=== PATIENT | female | born 1945 | race Caucasian/White ===

== ENCOUNTER 2016-12-08 05:28 | Inpatient (IN) | payer OTHER ==
[2016-12-08] VITALS (10 sets, daily range): BP systolic 94–112; BP diastolic 50–65
[~2016-12-08] VITALS: Ht 160 cm; Wt 65.7 kg
[~2016-12-08 05:28] MED LIST: ASPIRIN325 MG PO; ATORVASTATIN CA40 MG PO; LAMOTRIGINE200 MG PO; METOPROLOL SUCC25 MG PO; NORCO1 TA1 PO; PLAVIX75 MG PO; RISPERIDONE1 MG PO; TOPROL XL25 MG PO
--- NOTE | 2016-12-08 11:40 | OPERATIVE REPORT ---
DATE OF SURGERY: 12/08/2016 SURGEON: Wojciech Ledezma MD HEAD WAITER/WAITRESS: Lynn Leigh III, MD PREOPERATIVE DIAGNOSIS: 1. Diverticular abscess with colostomy POSTOPERATIVE DIAGNOSIS: 1. Diverticular abscess with colostomy PROCEDURE PERFORMED: 1. Laparoscopic takedown of colostomy ANESTHESIA: General. INDICATIONS: The patient is a 71-year-old woman who required surgery for perforated diverticulitis in July of last year. She has a Desiree procedure and now presents for takedown of colostomy. SURGICAL TECHNIQUE: The patient was taken to the operating room where she was placed in low lithotomy position. A Bowman catheter, orogastric tube, IV antibiotics, and sequential compression devices were in place. A local anesthetic of 0.5% Marcaine with epinephrine was used at each incision site. A right subcostal incision was made and a Veress needle used to insufflate the abdominal cavity. A 5 mm cannula was passed and used to obtain visualization. There were extensive adhesions immediately visualized. A small window was found in the right flank, and a 10 mm trocar was placed here. This was used to start taking down the adhesions. These were gradually taken down, with placement of a second cannula on the right side. The colostomy was found to contain a parastomal hernia with a loop of bowel stuck in it. This was taken down. Sharp dissection with cold scissors was used for the majority of this procedure. There were extensive small bowel loops stuck in the left lower quadrant, and these were also cleared out to make a free pathway for the descending colon into the pelvis. The space behind the uterus was dissected out and small bowel teased away until a window of anterior rectum was found. This required placement of a dilator in the rectum in order to push up on and help disclose its location. Once a sufficient thin walled window had been found in the pelvis, the colostomy was freed up at the skin level. This was taken down and detached from the peritoneal sac. A pursestring device was placed and a 4-0 Maxon pursestring was placed in the end of the colostomy. A 29 mm EEA anastomosis was used. The anvil was placed in the descending colon and tied in place. It was then returned to the abdominal cavity. The fascia was closed with running 0 PDS suture and the abdomen re-insufflated. The stapler was placed and an end-to-end anastomosis was carried out without incident. Note, there were 2 good donuts of tissue obtained, and insufflation under irrigation demonstrated no evidence of bubbling or leak. There was no tension on the anastomosis, and blood supply to the tip was excellent. Irrigation and suction were used. Additional Marcaine was instilled, gas was evacuated, and the skin sites closed with either running or interrupted subcuticular 4-0 Vicryl suture. Steri-Strips and dressings were applied, and the patient left in good condition. No intraoperative complications were encountered.
[2016-12-09] VITALS (7 sets, daily range): BP systolic 86–117; BP diastolic 39–55
[2016-12-10 02:00] VITALS: BP 100/54
[2016-12-10 06:17] VITALS: BP 86/43
[2016-12-10 10:22] VITALS: BP 97/43
[2016-12-10 14:19] VITALS: BP 115/47
[2016-12-10 18:16] VITALS: BP 128/59
[2016-12-10 22:22] VITALS: BP 141/63
[2016-12-11 02:02] VITALS: BP 128/66
[2016-12-11 06:27] VITALS: BP 102/49
[2016-12-11 11:04] VITALS: BP 116/63
[2016-12-11 14:56] VITALS: BP 131/64
[2016-12-11] MEDS ORDERED: NORCO1 TA1 PO (16:53)
--- NOTE | 2016-12-11 16:55 | Provider's Discharge Care Plan ---
Problem, Goal, Plan Problem List 1. S/P colostomy takedown
--- NOTE | 2016-12-11 16:55 | Provider's Discharge Care Plan ---
Problem, Goal, Plan Problem List 1. S/P colostomy takedown
[2016-12-11 18:21] VITALS: BP 140/59
[2016-12-11 22:30] VITALS: BP 113/57
[2016-12-12 02:05] VITALS: BP 109/62
[2016-12-12 06:42] VITALS: BP 103/53
--- NOTE | 2016-12-25 15:19 | DISCHARGE SUMMARY ---
ADMIT DATE: 12/08/2016 DISCHARGE DATE: 12/12/2016 DISCHARGE DIAGNOSIS: 1. Status post colostomy takedown HOSPITAL COURSE: The patient is a 71-year-old woman admitted for takedown of colostomy done for perforated diverticulitis previously. The patient underwent a laparoscopic takedown on 12/08/2016. Postoperatively, she had some degree of ileus, but by postoperative day #3, began passing gas and stool and was discharged on postoperative day #4, at which time she was tolerating her diet with normal bowel function. DISCHARGE INSTRUCTIONS/MEDICATIONS: The patient will be followed up in the office as scheduled.
== END 2016-12-12 10:10 | disposition home or self-care (01) | DRG 331 ==
LOC: SCU SRH 05:28 → U SRH 07:30 → ACUTE2 SRH 14:53
PROVIDERS: ADMIT Surgery
PROC: 0DN84ZZ Release Small Intestine, Percutaneous Endoscopic Approach (ICD-10-PCS; principal; 2016-12-08 07:30)
PROC: 0DBM0ZZ Excision of Descending Colon, Open Approach (ICD-10-PCS; principal; 2016-12-08 07:30)
DX: Z43.3 Encounter for attention to colostomy (principal); K66.0 Peritoneal adhesions (postprocedural) (postinfection); I10 Essential (primary) hypertension; F17.210 Nicotine dependence, cigarettes, uncomplicated; D86.9 Sarcoidosis, unspecified; E78.5 Hyperlipidemia, unspecified; I25.2 Old myocardial infarction; I25.10 Atherosclerotic heart disease of native coronary artery without angina pectoris; Z95.5 Presence of coronary angioplasty implant and graft; Z79.02 Long term (current) use of antithrombotics/antiplatelets
CPT/HCPCS: 50002; 60001; 70002; 80102; 80212; 82319; 82669; 82794; 82897; 83587; 83919; 83982; 84038; 84041; 84344; 84532; 90001; 90074; 90155; 91004; 91162; 91163

== ENCOUNTER 2016-12-26 19:56 | Inpatient (IN) | payer OTHER ==
[~2016-12-26] VITALS: Ht 160 cm; Wt 66.2 kg
--- NOTE | 2016-12-26 22:27 | DIAGNOSTIC IMAGING REPORT ---
PROCEDURE: CT ABD/PELVIS WITH CONTRAST CLINICAL INDICATION: Right abdominal pain, initial encounter TECHNIQUE: 125 ml of Isovue 300 were injected intravenously and axial images were obtained of the entire abdomen and pelvis with sagittal and coronal reformations. COMPARISON: CT abdomen/pelvis 07/15/2016 FINDINGS: ABDOMEN: Calcified bibasilar granulomas with paracentral calcified lymph nodes . Normal heart size. Liver, gallbladder, pancreas, spleen, adrenal glands and the kidneys are normal. Calcified forest hepatis lymph nodes. Mild atherosclerosis of the aorta. Diverticulosis of the ascending colon. PELVIS: Rectosigmoid colon suture line. Left lower quadrant colostomy takedown site measures 4.5 cm with irregular wall thickening, adjacent stranding and a small amount of fluid and air which may represent postsurgical changes or possibly developing abscess. This involves the subcutaneous tissue and left rectus muscle without extension into the peritoneal cavity. The uterus, adnexa and bladder are unremarkable. A small fat filled left femoral hernia. Bones are unremarkable. Moderate degenerative changes of the spine. IMPRESSION: 1. Left lower quadrant colostomy takedown with an air and fluid collection involving the left rectus muscle and subcutaneous tissues, consistent with an abscess or postsurgical changes. 2. Rectosigmoid colon suture line 3. Ascending colon diverticulosis 4. Small fat-containing left femoral hernia 5. Old granulomatous disease 6. Results discussed with Dorene Tripp All CT scans at this facility use dose modulation, iterative reconstruction, and/or weight-based dosing when appropriate to reduce radiation dose to as low as reasonably achievable.
[2016-12-27] VITALS (13 sets, daily range): BP systolic 115–153; BP diastolic 66–95
--- NOTE | 2016-12-27 10:45 | OPERATIVE REPORT ---
DATE OF SURGERY: 12/27/2016 SURGEON: Lynn Leigh III, MD ACUTE CARE OCCUPATIONAL THERAPIST: None. PREOPERATIVE DIAGNOSIS: 1. Abscess, previous left lower quadrant abdominal colostomy site POSTOPERATIVE DIAGNOSIS: 1. Abscess, previous left lower quadrant abdominal colostomy site PROCEDURE PERFORMED: 1. Incision, drainage, curettage and sharp debridement of skin, subcutaneous and fascia and drainage of abscess cavity 5x4x3 cm. ANESTHESIA: General endotracheal anesthesia. Local 1% Xylocaine with epinephrine. INDICATIONS: The patient is a 71-year-old female who is status post colostomy takedown following Desiree procedure for perforated diverticulitis, colostomy takedown 12/08/2016 presented with a 2-day history of soreness and swelling at the previous colostomy site left lower quadrant, while at [facility] noticed some serosanguineous fluid draining from this site, was seen in the emergency department where copious amounts of purulent fluid was expressed from the wound and she was scheduled for incision and drainage. SURGICAL FINDINGS: Abscess cavity left lower quadrant previous colostomy site containing purulent brownish fluid. No communication, subfascial with intraabdominal peritoneal space. [id number]. abcess cavity. SURGICAL TECHNIQUE: The patient was brought to the operating room and placed in the dorsal supine position where she underwent general endotracheal anesthesia by the anesthesiology department. After proper anesthesia had taken effect, the patient 's abdomen was prepped using Betadine and draped in a sterile fashion. The draining site in the left lower quadrant previous colostomy site was probed and cultured and this culture was sent to the laboratory for aerobic and anaerobic cultures. Hemostat was inserted into the wound. The skin overlying the hemostat as it probed laterally and medially was infiltrated using local anesthetic. An incision was made over the hemostat down into the abscess cavity using the hemostat as a guide. Once the cavity was opened, its contents were suctioned out and the devitalized tissue was curettaged with bone curettes and sharply debrided using Metzenbaum scissors all the way down to fascia. The fascia was probed and the abscess cavity did not seem to have communication with the peritoneum. The wound was irrigated copiously with warm normal saline and antibiotic solution. Hemostasis achieved using electrocautery. The wound was then packed with Kerlix soaked Betadine. A sterile dressing was placed over the site. The patient tolerated the procedure well, was extubated and transferred to the recovery room in stable condition. There were no intraoperative or anesthetic complications.
--- NOTE | 2016-12-27 10:45 | OPERATIVE REPORT ---
DATE OF SURGERY: 12/27/2016 SURGEON: Lynn Leigh III, MD SCARIFIER OPERATOR: None. PREOPERATIVE DIAGNOSIS: 1. Abscess, previous left lower quadrant abdominal colostomy site POSTOPERATIVE DIAGNOSIS: 1. Abscess, previous left lower quadrant abdominal colostomy site PROCEDURE PERFORMED: 1. Incision, drainage, curettage and sharp debridement of skin, subcutaneous and fascia and drainage of abscess cavity 5x4x3 cm. ANESTHESIA: General endotracheal anesthesia. Local 1% Xylocaine with epinephrine. INDICATIONS: The patient is a 71-year-old female who is status post colostomy takedown following Desiree procedure for perforated diverticulitis, colostomy takedown 12/08/2016 presented with a 2-day history of soreness and swelling at the previous colostomy site left lower quadrant, while at [facility] noticed some serosanguineous fluid draining from this site, was seen in the emergency department where copious amounts of purulent fluid was expressed from the wound and she was scheduled for incision and drainage. SURGICAL FINDINGS: Abscess cavity left lower quadrant previous colostomy site containing purulent brownish fluid. No communication, subfascial with intraabdominal peritoneal space. [id number]. abcess cavity. SURGICAL TECHNIQUE: The patient was brought to the operating room and placed in the dorsal supine position where she underwent general endotracheal anesthesia by the anesthesiology department. After proper anesthesia had taken effect, the patient 's abdomen was prepped using Betadine and draped in a sterile fashion. The draining site in the left lower quadrant previous colostomy site was probed and cultured and this culture was sent to the laboratory for aerobic and anaerobic cultures. Hemostat was inserted into the wound. The skin overlying the hemostat as it probed laterally and medially was infiltrated using local anesthetic. An incision was made over the hemostat down into the abscess cavity using the hemostat as a guide. Once the cavity was opened, its contents were suctioned out and the devitalized tissue was curettaged with bone curettes and sharply debrided using Metzenbaum scissors all the way down to fascia. The fascia was probed and the abscess cavity did not seem to have communication with the peritoneum. The wound was irrigated copiously with warm normal saline and antibiotic solution. Hemostasis achieved using electrocautery. The wound was then packed with Kerlix soaked Betadine. A sterile dressing was placed over the site. The patient tolerated the procedure well, was extubated and transferred to the recovery room in stable condition. There were no intraoperative or anesthetic complications.
[2016-12-28] VITALS (13 sets, daily range): BP systolic 91–142; BP diastolic 45–72
--- NOTE | 2016-12-28 13:14 | OPERATIVE REPORT ---
DATE OF SURGERY: 12/28/2016 SURGEON: Lynn Leigh III, MD FOCUSED FACTORY MANAGER: None. PREOPERATIVE DIAGNOSIS: 1. Postoperative wound bleeding POSTOPERATIVE DIAGNOSIS: 1. Postoperative wound bleeding PROCEDURE PERFORMED: 1. Wound exploration and evacuation of wound clot/hematoma ANESTHESIA: TIVA, local, 1% Xylocaine with epinephrine, 0.5% Marcaine with epinephrine. INDICATIONS: The patient is a 71-year-old female who underwent a colostomy takedown following Desiree procedure for ruptured diverticulitis, colostomy takedown 6 12/08/2016, and developed an abscess of her colostomy site. She was taken to the operating room on 12/27/2016. After surgery, there was good hemostasis; however, after the first dressing change, the nurse noticed blood soaking through her dressing. In spite of efforts at reinforcing the wound, the patient continued to soak her dressings. It was decided to return the patient to surgery, where good lighting and cautery was available, for evaluation and exploration of the wound. SURGICAL FINDINGS: The patient was noted to have a large clot within the wound cavity, but no gross overt site of bleeding noted. SURGICAL TECHNIQUE: The patient was brought to the operating room and placed in the supine position, where she was administered TIVA and monitored closely by anesthesia. After proper anesthesia had taken effect, the patient's abdomen was prepped using Betadine and draped in a sterile fashion. The skin was infiltrated using 1% Xylocaine with epinephrine, 0.5% Marcaine with epinephrine. The wound was irrigated with normal saline and the clot digitally removed from the wound. The wound was irrigated copiously with warm normal saline and packed. The packing was removed. Inspection of the wound: Base revealed no evidence of gross overt bleeding site. The wound was then filled with normal saline and observed. There was no welling pooling or staining of the normal saline with blood. The irrigant was suctioned out. The wound was packed again, and pressure was held on the wound for 3 minutes. The packing was removed. The wound was inspected once again. Again, there was no overt site of bleeding. The wound was packed with moist [id number] Kerlix sponge. Dressing applied. The patient tolerated the procedure well. She was transferred to the recovery room in stable condition. There were no intraoperative or anesthetic complications.
[2016-12-29 02:00] VITALS: BP 97/45
[2016-12-29 06:05] VITALS: BP 120/87
[2016-12-29 10:35] VITALS: BP 98/57
--- NOTE | 2016-12-29 13:07 | ED DISCHARGE INSTRUCTIONS ---
Patient: ELYSSA JORGE General Instructions [facility] VisitID: [id number] [address] [place] [address] 71y, F Registration Date/Time: 12/26/2016 Wound check (Infected Surgical Site). (Electronically signed by Dorene Tripp A.R.N.P. 12/29/2016 13:07)
--- NOTE | 2016-12-29 13:07 | ED NURSING NOTES ---
Clinical Report - Nurses [facility] [address] [place] [address] 12/26/2016 19:57 [id number] T[facility] 2004. Acuity: LEVEL 3. Chief Complaint: (fluid leaking from incision). Alert. No acute distress. (anxious). --20:13 Bella Servin 20:10 12/26/16. BP: 180/78. HR: 79. RR: 18. O2 saturation: 98%. Temp: 98 F. Pain level now 510. --20:13 Bella Servin. Weight: 63.5 kg. Height/Length: 63 inches. BMI: 24.8. --20:10 Bella Servin. Medications Aspirin Oral (Tablet 325 mg). Aspirin Oral. Atorvastatin Calcium Oral 40 mg. lamotrigine 200 mg. Levofloxacin Oral. Metoprolol 25 mg . Risperidone 1 mg. --20:11 Bella Servin. Allergies No Known Drug Allergy. --20:11 Bella Servin. History Arrived by private vehicle. Historian: patient. Accompanied by family. Location: abdomen. PAST MEDICAL HX: Immunizations: up-to-date. SOCIAL HX: Heavy tobacco smoker (cigarette)- 1 pack per day. FALL RISK ASSESSMENT: Fall risk assessment completed. No fall risk identified. NUTRITIONAL RISK ASSESSMENT: The nutritional risk assessment revealed no deficiencies. FUNCTIONAL ASSESSMENT: Functional assessment: no impairments noted. LEARNING NEEDS ASSESSMENT: The learning needs assessment revealed no barriers. SKIN INTEGRITY ASSESSMENT: Skin integrity risk assessment completed. No skin integrity risk identified. --20:13 Bella Servin. PROBLEMS: Acute Myocardial Infarction. --20:12 Bella Servin. ADDITIONAL SURGERIES: Ectopic . Laparoscopy. --20:12 Bella Servin. Interventions ID band on patient. To treatment room. --20:13 Bella Servin. PHYSICAL ASSESSMENT Ambulatory to room. GENERAL / NEURO / PSYCH: Alert. Oriented X 4. Patient's nutrition appears within normal limits. Appears anxious. EXTREMITIES: Extremity pulses are within normal limits. Capillary refill is less than 2 seconds in the extremities. Sensation intact in extremities. ROM of extremities within normal limits. SKIN: Skin is warm and dry. No signs or symptoms of infection. Serous drainage. Tenderness. --20:14 Bella Servin. NURSING PROGRESS NOTES Reassurance given. Call light placed in reach. Side rails up x 1. Bed placed in lowest position. Brakes of bed on. Patient ready for evaluation- chart flagged. --20: Bella Servin :12/26/2016 Site #1 started via IV in the right antecubital space with an 20g angiocath, with aseptic technique and good blood return; two attempts. Blood drawn: rainbow set. Labeled in the presence of the patient and sent to the lab. Saline lock flushed with 10 mL saline. --: Bella Servin :12/26/2016 Dilaudid (HYDROmorphone HCl PF) IVP 1 mg given. via site #1. Allergies verified and confirmed 5 rights. IV patency established. IV site checked: no pain, redness, or swelling. IV flushed thoroughly pre- and post-medication administration. IVP given by RN. --: Bella Servin :12/26/2016 Zofran (Ondansetron HCl) IVP 4 mg given. via site #1. Allergies verified and confirmed 5 rights. IV patency established. IV site checked: no pain, redness, or swelling. IV flushed thoroughly pre- and post-medication administration. IVP given by RN. --: Bella Servin Patient transported to CT by stretcher with tech. (21:50 Dec 26 2016). Patient returned from CT by stretcher with tech. (:00 Dec 26 2016). --22:00 Francy Patricio 22:02 12/26/16. BP: 161/77. HR: 42. RR: 20. O2 saturation: 91%. Pain level now: 0/10. --22:03 Francy Patricio 21:45. ( Son here, pt and son discussing possibility of transferring care, decided to await CT results, pt assurred that we will do anything we can to assist her decisions.). --22:39 Bella Servin 22:56 12/26/2016 Demerol (Meperidine HCl) IVP 25 mg given over 1 minute(s) via site #1. Allergies verified and confirmed 5 rights. IV patency established. IV site checked: no pain, redness, or swelling. IV flushed thoroughly pre- and post-medication administration. IVP given by RN. --22:56 Bella Servin ( A colostomy bag was placed around the surgical site that was draining. This order was placed by Dr. Nagel. Son stood at bedside.). --23:08 Edgar Pereira R.N. 23:20 12/26/2016 Started 750 mg of Levaquin (Levofloxacin) IVPB in bag #1 150 mL; at 100 mL/hr over 90 minute(s) via site #1 via IV pump. Allergies verified and confirmed 5 rights. IV patency established. IV site checked: no pain, redness, or swelling. IV flushed thoroughly pre- and post-medication administration. --23:20 Bella Servin 22:45. ( Pt c/o pain, given floor ordered Demerol 25mg). --23:42 Bella Servin 23:00. ( Pt requesting to go ahead and start IV antibiotics she would get on the floor, Levaquin 750mg started from floor orders). --23:43 Bella Servin 00:02 12/27/16. BP: 128/60. HR: 80. RR: 18. O2 saturation: 99%. Pain level now 10. --00:03 Bella Servin ( Pt has agreed to stay and be admitted versus transferring.). --00:03 Bella Servin 00:18 12/27/2016 Demerol (Meperidine HCl) IVP 25 mg given over 1 minute(s) via site #1. Allergies verified and confirmed 5 rights. IV patency established. IV site checked: no pain, redness, or swelling. IV flushed thoroughly pre- and post-medication administration. IVP given by RN. --00:18 Bella Servin 00:43 12/27/16. ( Pt c/o pain again, given floor order of Demerol 25mg). --00:43 Bella Servin Patient waiting for (210b). --00:43 Bella Servin. DISPOSITION / DISCHARGE Departure time: 49. Condition at departure: improved and stable. Report was given to a nurse via a phone call. Report included patient's care, treatment, medications, reviewed medication reconcilliation, and condition (including any recent changes or anticipated changes). All questions were answered. Report was acknowledged and care was transferred. --00:44 Bella Servin Patient's personal items; items were placed in belongings bag, given to the patient and transported with the patient. --00:44 Bella Servin. Locked/Released at 12/27/2016 0:45 by Bella Servin,
--- NOTE | 2016-12-29 13:07 | ED CLINICAL REPORT ---
Clinical Report - Physicians/Mid Levels [facility] [address] [place] [address] 12/26/2016 19:57 Patient: ELYSSA JORGE Time Seen: 20:33; initial patient contact, initial documentation, patient care assumed. Arrived- By private vehicle. Historian- patient. HISTORY OF PRESENT ILLNESS Treated in emergency department (18 days ago). Chief Complaint: WOUND RECHECK. The patient has experienced pain since the procedure was performed. Previous emergency department treatment: (abdominal surgery). 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 REVIEW OF SYSTEMS No fever. All systems otherwise negative, except as recorded above. PAST HISTORY See nurses notes. PROBLEMS: Acute Myocardial Infarction. --20:12 Bella Servin. ADDITIONAL SURGERIES: Ectopic . Laparoscopy. --20:12 Bella Servin. SOCIAL HISTORY Heavy tobacco smoker. No alcohol use or drug use. No recent travel. Is a local resident. FAMILY HISTORY No significant family medical history. ADDITIONAL NOTES The nursing notes have been reviewed with agreement regarding the chief complaint, HPI, ROS, PMH and patient medications and allergies. PHYSICAL EXAM Vital Signs: 12/26/2016 20:10 BP: 180/78. HR: 79. RR: 18. O2 saturation: 98%. Temp: 98 F. Have been reviewed as normal and appear to be correct. Appearance: Alert. Oriented X3. No acute distress. Head: Head non-tender. No swelling of head. Eyes: Pupils equal, round and reactive to light. EOM intact. ENT: No dental injury. Pharynx normal. Neck: Neck non-tender. Painless ROM. CVS: Heart sounds normal. Pulses normal. Respiratory: Breath sounds normal. Chest nontender. Abdomen: Soft. Mild tenderness in the left lower quadrant. No guarding, rebound tenderness or Umanzor's, obturator or psoas sign present. No organomegaly. Tenderness present. Back: No tenderness. ROM normal. Skin: Erythema. Tenderness. Heavy purulent drainage present. Partial wound dehiscence. (surgical site to Llq, steri strips gone, wound open draining very large amounts of pus). Extremities: Normal inspection. Extremities atraumatic. No lower extremity edema. Neuro, Vascular and Tendons: Sensation intact. No tendon injury. No vascular compromise. Neuro: Oriented X 3. No motor deficit. No sensory deficit. LABS, X-RAYS, AND EKG Abdominal CT: . IMPRESSION: 1. Left lower quadrant colostomy takedown with an air and fluid collection involving the left rectus muscle and subcutaneous tissues, consistent with an abscess or postsurgical changes. 2. Rectosigmoid colon suture line 3. Ascending colon diverticulosis 4. Small fat-containing left femoral hernia 5. Old granulomatous disease 6. Results discussed with Dorene Tripp All CT scans at this facility use dose modulation, iterative reconstruction, and/or weight-based dosing when appropriate to reduce radiation dose to as low as reasonably achievable. Electronically Final signed by:Sandeep Zimmerman MD 12/26/2016 10:26:41 PM. The study was interpreted by the radiologist and discussed with the radiologist. Interpretation time: 22:26. Laboratory Tests: . CBC w Diff: (LEIGH: 12/26/2016 21:05) ( MsgRcvd 12/26/2016 21:23) Final results Test Result Flag Units (Reference) WHITE BLOOD COUNT 9.9 K/uL (4.5-11.5) RED BLOOD COUNT 3.96 L M/uL (4.00-5.20) HEMOGLOBIN 13.3 gm/dL (12.0-16.0) HEMATOCRIT 39.3 % (36.0-46.0) MEAN CELL VOLUME 99 fL (80-100) MEAN CORPUSCULAR HGB 34 pg (26-34) MEAN CORPUSCULAR HGB CONC 34 g/dL (31-37) RED CELL DISTRIBUTION WIDTH 15.0 H % (11.6-14.8) PLATELET COUNT 478 H K/uL (150-400) NEUTROPHIL % 68.3 % (50-75) LYMPH % 23.7 L % (25-40) MONO % 5.6 % (3-14) EOSINOPHIL % 2.2 % (0-4) BASOPHIL % 0.2 % (0-2) Lactate, Serum: (LEIGH: 12/26/2016 21:05) ( [facility] 12/[facility] 21[facility]54) Final results Test Result Flag Units (Reference) LACTIC ACID 0.5 mmol/L (0.4-2.0) [id number]: (LEIGH: 12/26/2016 21:05) ( [facility] 12/26/2016 22:08) Final results Test Result Flag Units (Reference) PROCALCITONIN <0.5 ng/mL (0-0.5) PCT Concentration: Interpretation : Risk/option for action PCT <=0.5 ng/mL : Systemic : Low risk forinfection(sepsis): progression to severeis not likely. : systemic infection.Local bacterial : CAUTION-PCT levelsinfection is : below 0.5 ng/mL do notpossible. : exclude an infection,because localizedinfections (withoutsystemic signs) may beassociated with suchlow levels. If PCT ismeasured very earlyafter a bacterialchallenge (usually <6hours), these valuesmay still be low. Inthis case PCT shouldbe re-assessed 6-24hours later. PCT >0.5 and : Systemic infection: Moderate risk for<= 2 ng/mL : (sepsis) is : progression to severepossible, but : systemic infection.other conditions : The patient should beare known to : closely monitoredelevate PCT. : both clinically andby re-assessing PCTwithin 6-24 hours. PCT > 2 ng/mL : Systemic infection: High risk for(sepsis) is likely: progression to severeunless other : systemic infection.causes are known. : PCT >= 10 ng/mL : Important systemic: High likelihood ofinflammatory : severe sepsis orresponse, almost : septic shock.exclusively due to:severe bacterial :sepsis or septic :shock. : CMP: (LEIGH: 12/26/2016 21:05) ( MsgRcvd 12/26/2016 21:36) Final results Test Result Flag Units (Reference) GLUCOSE 85 mg/dL (70-110) BUN 11 mg/dL (7-18) CREATININE 0.7 mg/dL (0.6-1.3) Estimated GFR >60 mL/min Estimated GFR- >60 mL/min Note: Persistent reduction over 3 months in eGFR<60 mL/min/1.73 m2 defines CKD. Patients with eGFR values>=60 mL/min/1.73 m2 may also have CKD if evidence ofpersistent proteinuria. Additional information may be foundat www.kidney.org. SODIUM 142 mmol/L (136-145) POTASSIUM 3.8 mmol/L (3.5-5.1) CHLORIDE 105 mmol/L (98-107) CARBON DIOXIDE 27 mmol/L (21-32) CALCIUM 9.0 mg/dL (8.5-10.1) TOTAL PROTEIN 7.7 g/dL (6.4-8.2) ALBUMIN 2.9 L g/dL (3.3-5.0) BILIRUBIN, TOTAL 0.3 mg/dL (0.0-1.0) ALKALINE PHOSPHATASE 77 U/L (46-116) AST (SGOT) 17 U/L (15-37) ALT (SGPT) 12 U/L (12-78) . PROGRESS AND PROCEDURES Course of Care: 21:00 12/26/16. spoke to dr nicole again, wanted to know more of pt's hx or what happened and her vs, will see pt in am. Discussed case with on-call health care provider, (call returned [phone] Dr Nicole). Reviewed test results. Agreed upon treatment plan and decision to admit. Health care provider will see patient in hospital. Differential Diagnosis: Other possible considerations: peritonitis, post op infection, cellulitis, abscess, perforated bowel. Above considerations are based on history, physical exam, laboratory data and other information. Differential diagnosis was discussed with patient. Disposition: Admitted to Acute Care. 20:45. CLINICAL IMPRESSION Wound check (Infected Surgical Site). (Electronically signed by Dorene Tripp A.R.N.P. 12/29/2016 13:07)
--- NOTE | 2016-12-29 13:07 | ED DISCHARGE INSTRUCTIONS ---
Patient: ELYSSA JORGE General Instructions [facility] VisitID: [id number] [address] [place] [address] 71y, F Registration Date/Time: 12/26/2016 Wound check (Infected Surgical Site). (Electronically signed by Dorene Tripp A.R.N.P. 12/29/2016 13:07)
--- NOTE | 2016-12-29 13:07 | ED CLINICAL REPORT ---
Clinical Report - Physicians/Mid Levels [facility] [address] [place] [address] 12/26/2016 19:57 Patient: ELYSSA JORGE Time Seen: 20:33; initial patient contact, initial documentation, patient care assumed. Arrived- By private vehicle. Historian- patient. HISTORY OF PRESENT ILLNESS Treated in emergency department (18 days ago). Chief Complaint: WOUND RECHECK. The patient has experienced pain since the procedure was performed. Previous emergency department treatment: (abdominal surgery). 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 REVIEW OF SYSTEMS No fever. All systems otherwise negative, except as recorded above. PAST HISTORY See nurses notes. PROBLEMS: Acute Myocardial Infarction. --20:12 Bella Servin. ADDITIONAL SURGERIES: Ectopic . Laparoscopy. --20:12 Bella Servin. SOCIAL HISTORY Heavy tobacco smoker. No alcohol use or drug use. No recent travel. Is a local resident. FAMILY HISTORY No significant family medical history. ADDITIONAL NOTES The nursing notes have been reviewed with agreement regarding the chief complaint, HPI, ROS, PMH and patient medications and allergies. PHYSICAL EXAM Vital Signs: 12/26/2016 20:10 BP: 180/78. HR: 79. RR: 18. O2 saturation: 98%. Temp: 98 F. Have been reviewed as normal and appear to be correct. Appearance: Alert. Oriented X3. No acute distress. Head: Head non-tender. No swelling of head. Eyes: Pupils equal, round and reactive to light. EOM intact. ENT: No dental injury. Pharynx normal. Neck: Neck non-tender. Painless ROM. CVS: Heart sounds normal. Pulses normal. Respiratory: Breath sounds normal. Chest nontender. Abdomen: Soft. Mild tenderness in the left lower quadrant. No guarding, rebound tenderness or Umanzor's, obturator or psoas sign present. No organomegaly. Tenderness present. Back: No tenderness. ROM normal. Skin: Erythema. Tenderness. Heavy purulent drainage present. Partial wound dehiscence. (surgical site to Llq, steri strips gone, wound open draining very large amounts of pus). Extremities: Normal inspection. Extremities atraumatic. No lower extremity edema. Neuro, Vascular and Tendons: Sensation intact. No tendon injury. No vascular compromise. Neuro: Oriented X 3. No motor deficit. No sensory deficit. LABS, X-RAYS, AND EKG Abdominal CT: . IMPRESSION: 1. Left lower quadrant colostomy takedown with an air and fluid collection involving the left rectus muscle and subcutaneous tissues, consistent with an abscess or postsurgical changes. 2. Rectosigmoid colon suture line 3. Ascending colon diverticulosis 4. Small fat-containing left femoral hernia 5. Old granulomatous disease 6. Results discussed with Dorene Tripp All CT scans at this facility use dose modulation, iterative reconstruction, and/or weight-based dosing when appropriate to reduce radiation dose to as low as reasonably achievable. Electronically Final signed by:Sandeep Zimmerman MD 12/26/2016 10:26:41 PM. The study was interpreted by the radiologist and discussed with the radiologist. Interpretation time: 22:26. Laboratory Tests: . CBC w Diff: (LEIGH: 12/26/2016 21:05) ( MsgRcvd 12/26/2016 21:23) Final results Test Result Flag Units (Reference) WHITE BLOOD COUNT 9.9 K/uL (4.5-11.5) RED BLOOD COUNT 3.96 L M/uL (4.00-5.20) HEMOGLOBIN 13.3 gm/dL (12.0-16.0) HEMATOCRIT 39.3 % (36.0-46.0) MEAN CELL VOLUME 99 fL (80-100) MEAN CORPUSCULAR HGB 34 pg (26-34) MEAN CORPUSCULAR HGB CONC 34 g/dL (31-37) RED CELL DISTRIBUTION WIDTH 15.0 H % (11.6-14.8) PLATELET COUNT 478 H K/uL (150-400) NEUTROPHIL % 68.3 % (50-75) LYMPH % 23.7 L % (25-40) MONO % 5.6 % (3-14) EOSINOPHIL % 2.2 % (0-4) BASOPHIL % 0.2 % (0-2) Lactate, Serum: (LEIGH: 12/26/2016 21:05) ( [facility] 12/26/2016 21:54) Final results Test Result Flag Units (Reference) LACTIC ACID 0.5 mmol/L (0.4-2.0) [id number]: (LEIGH: 12/26/2016 21:05) ( [facility] 12/26/2016 22:08) Final results Test Result Flag Units (Reference) PROCALCITONIN <0.5 ng/mL (0-0.5) PCT Concentration: Interpretation : Risk/option for action PCT <=0.5 ng/mL : Systemic : Low risk forinfection(sepsis): progression to severeis not likely. : systemic infection.Local bacterial : CAUTION-PCT levelsinfection is : below 0.5 ng/mL do notpossible. : exclude an infection,because localizedinfections (withoutsystemic signs) may beassociated with suchlow levels. If PCT ismeasured very earlyafter a bacterialchallenge (usually <6hours), these valuesmay still be low. Inthis case PCT shouldbe re-assessed 6-24hours later. PCT >0.5 and : Systemic infection: Moderate risk for<= 2 ng/mL : (sepsis) is : progression to severepossible, but : systemic infection.other conditions : The patient should beare known to : closely monitoredelevate PCT. : both clinically andby re-assessing PCTwithin 6-24 hours. PCT > 2 ng/mL : Systemic infection: High risk for(sepsis) is likely: progression to severeunless other : systemic infection.causes are known. : PCT >= 10 ng/mL : Important systemic: High likelihood ofinflammatory : severe sepsis orresponse, almost : septic shock.exclusively due to:severe bacterial :sepsis or septic :shock. : CMP: (LEIGH: 12/26/2016 21:05) ( MsgRcvd 12/26/2016 21:36) Final results Test Result Flag Units (Reference) GLUCOSE 85 mg/dL (70-110) BUN 11 mg/dL (7-18) CREATININE 0.7 mg/dL (0.6-1.3) Estimated GFR >60 mL/min Estimated GFR- >60 mL/min Note: Persistent reduction over 3 months in eGFR<60 mL/min/1.73 m2 defines CKD. Patients with eGFR values>=60 mL/min/1.73 m2 may also have CKD if evidence ofpersistent proteinuria. Additional information may be foundat www.kidney.org. SODIUM 142 mmol/L (136-145) POTASSIUM 3.8 mmol/L (3.5-5.1) CHLORIDE 105 mmol/L (98-107) CARBON DIOXIDE 27 mmol/L (21-32) CALCIUM 9.0 mg/dL (8.5-10.1) TOTAL PROTEIN 7.7 g/dL (6.4-8.2) ALBUMIN 2.9 L g/dL (3.3-5.0) BILIRUBIN, TOTAL 0.3 mg/dL (0.0-1.0) ALKALINE PHOSPHATASE 77 U/L (46-116) AST (SGOT) 17 U/L (15-37) ALT (SGPT) 12 U/L (12-78) . PROGRESS AND PROCEDURES Course of Care: 21:00 12/26/16. spoke to dr nicole again, wanted to know more of pt's hx or what happened and her vs, will see pt in am. Discussed case with on-call health care provider, (call returned [phone] Dr Nicole). Reviewed test results. Agreed upon treatment plan and decision to admit. Health care provider will see patient in hospital. Differential Diagnosis: Other possible considerations: peritonitis, post op infection, cellulitis, abscess, perforated bowel. Above considerations are based on history, physical exam, laboratory data and other information. Differential diagnosis was discussed with patient. Disposition: Admitted to Acute Care. 20:45. CLINICAL IMPRESSION Wound check (Infected Surgical Site). (Electronically signed by Dorene Tripp A.R.N.P. 12/29/2016 13:07)
--- NOTE | 2016-12-29 13:08 | ED ORDER SUMMARY ---
..... Patient: ELYSSA JORGE OrderSheet [facility] VisitID: [id number] [place] [address] 71y, F Registration Date/Time: 12/26/2016 ORDER SHEET Weight: 63.5 kg Allergies: No Known Drug Allergy GENERAL ORDERS: Blood Culture (No) (N/A) Urgent (20:39 12/26/2016 HBivens A.R.N.P.) (Ack 20:41 IJurca ER Tech1) ([facility] Culture, Wound Deep (Abdomen) (abdomen) Urgent (20:39 12/26/2016 HBivens A.R.N.P.) (Ack 20:41 IJurca ER Tech1) ([facility]:46 [facility] CBC w Diff Urgent (20:39 12/26/2016 HBivens A.R.N.P.) (Ack 20:41 IJurca ER Tech1) (21:01 [facility]) CMP Urgent (20:39 12/26/2016 HBivens A.R.N.P.) (Ack 20:41 IJurca ER Tech1) (21:01 [facility]) Lactate, Serum Urgent (20:39 12/26/2016 HBivens A.R.N.P.) (Ack 20:41 IJurca ER Tech1) (21:01 [facility]) PCT (Procalcitonin) Urgent (20:39 12/26/2016 HBivens A.R.N.P.) (Ack 20:41 IJurca ER Tech1) (21:01 [facility]) CT Abd/Pel w Cont (No) (pending) Urgent (20:47 12/26/2016 HBivens A.R.N.P.) (Ack 20:50 IJurca ER Tech1) (23:36 [facility]) MEDICATION ORDERS: Metoprolol PO 12.5 mg (HIGH ALERT MEDICATION, NOW) (00:04 12/27/2016 Sanam Pelaez) - (Lamotrigine 300 mg PO now) (00:04 12/27/2016 Sanam Pelaez) -- (Risperidone 1 mg PO now) (00:04 12/27/2016 Sanam Pelaez) IV FLUIDS: IV Saline Lock (20:39 12/26/2016 HBivens A.R.N.P.) (21:00 [facility]) Dilaudid IV 1 mg (HIGH ALERT MEDICATION, NOW) (20:46 12/26/2016 HBivens A.R.N.P.) (21:00 [facility]) Zofran IV 4 mg (NOW) (20:46 12/26/2016 HBivens A.R.N.P.) (21:00 [facility]) Demerol IV 25 mg (HIGH ALERT MEDICATION, NOW) (22:55 12/26/2016 Tyree written order Nicol HERNANDEZ) (22:56 [facility]) Levaquin IV 750 mg/150 mL (NOW) (23:19 12/26/2016 Tyree written order Nicol HERNANDEZ) (23:20 [facility]) Demerol IV 25 mg (HIGH ALERT MEDICATION, NOW) (00:17 12/27/2016 [facility] HERNANDEZ) (0:18 [facility]) ORDER SHEET NOTES: [Electronically signed by Bella Servin (00:45 12/27/2016)] [Electronically signed by Dorene Tripp A.R.N.P. (13:07 12/29/2016)] [Electronically locked/signed by Bella Servin (00:45 12/27/2016)]
--- NOTE | 2016-12-29 13:08 | ED MAR SUMMARY ---
..... Medication Administration Record [facility] [address] [place] [address] Patient: ELYSSA JORGE Visit ID: [id number] 71y, F Weight: 63.5 kg Height/Length: 63 in BMI: 24.8 ALLERGIES: No Known Drug Allergy Given 21:12/26/2016 Bella Servin, Medication Administered: DILAUDID [IVP] (HYDROMORPHONE HCL PF), Dose: 1 mg IVP, Site: #1 right AC. Medication Ordered: Dilaudid IV 1 mg (HIGH ALERT MEDICATION, NOW). Given :12/26/2016 Bella Servin, Medication Administered: ZOFRAN [IVP] (ONDANSETRON HCL), Dose: 4 mg IVP, Site: #1 right AC. Medication Ordered: Zofran IV 4 mg (NOW). Given 22:56 12/26/2016 Bella Servin, Medication Administered: DEMEROL [IVP] (MEPERIDINE HCL), Dose: 25 mg IVP over 1 minute(s), Site: #1 right AC. Medication Ordered: Demerol IV 25 mg (HIGH ALERT MEDICATION, NOW). Start 23:20 12/26/2016 Bella Servin, Medication Administered: LEVAQUIN [IVPB] (LEVOFLOXACIN), Dose: 750 mg IVPB over 90 minute(s), Rate: 100 mL/hr, Dispensed: 150 mL bag, Site: #1 right AC. Medication Ordered: Levaquin IV 750 mg/150 mL (NOW). Given 00:18 12/27/2016 Bella Servin, Medication Administered: DEMEROL [IVP] (MEPERIDINE HCL), Dose: 25 mg IVP over 1 minute(s), Site: #1 right AC. Medication Ordered: Demerol IV 25 mg (HIGH ALERT MEDICATION, NOW).
--- NOTE | 2016-12-29 13:08 | ED MAR SUMMARY ---
..... Medication Administration Record [facility] [address] [place] [address] Patient: ELYSSA JORGE Visit ID: [id number] 71y, F Weight: 63.5 kg Height/Length: 63 in BMI: 24.8 ALLERGIES: No Known Drug Allergy Given 21:12/26/2016 Bella Servin, Medication Administered: DILAUDID [IVP] (HYDROMORPHONE HCL PF), Dose: 1 mg IVP, Site: #1 right AC. Medication Ordered: Dilaudid IV 1 mg (HIGH ALERT MEDICATION, NOW). Given :12/26/2016 Bella Servin, Medication Administered: ZOFRAN [IVP] (ONDANSETRON HCL), Dose: 4 mg IVP, Site: #1 right AC. Medication Ordered: Zofran IV 4 mg (NOW). Given 22:56 12/26/2016 Bella Servin, Medication Administered: DEMEROL [IVP] (MEPERIDINE HCL), Dose: 25 mg IVP over 1 minute(s), Site: #1 right AC. Medication Ordered: Demerol IV 25 mg (HIGH ALERT MEDICATION, NOW). Start 23:20 12/26/2016 Bella Servin, Medication Administered: LEVAQUIN [IVPB] (LEVOFLOXACIN), Dose: 750 mg IVPB over 90 minute(s), Rate: 100 mL/hr, Dispensed: 150 mL bag, Site: #1 right AC. Medication Ordered: Levaquin IV 750 mg/150 mL (NOW). Given 00:18 12/27/2016 Bella Servin, Medication Administered: DEMEROL [IVP] (MEPERIDINE HCL), Dose: 25 mg IVP over 1 minute(s), Site: #1 right AC. Medication Ordered: Demerol IV 25 mg (HIGH ALERT MEDICATION, NOW).
--- NOTE | 2016-12-29 13:08 | ED ORDER SUMMARY ---
..... Patient: ELYSSA JORGE OrderSheet [facility] VisitID: [id number] [place] [address] 71y, F Registration Date/Time: 12/26/2016 ORDER SHEET Weight: 63.5 kg Allergies: No Known Drug Allergy GENERAL ORDERS: Blood Culture (No) (N/A) Urgent (20:39 12/26/2016 HBivens A.R.N.P.) (Ack 20:41 IJ[facility] ER Tech1) ([facility] Culture, Wound Deep (Abdomen) (abdomen) Urgent (20:39 12/26/2016 HBivens A.R.N.P.) (Ack 20:41 [facility]ur[facility] ER Tech1) ([facility]) CBC w Diff Urgent (20:39 12/26/2016 HBivens A.R.N.P.) (Ack 20:41 IJurca ER Tech1) (21:01 [facility]) CMP Urgent (20:39 12/26/2016 HBivens A.R.N.P.) (Ack 20:41 IJurca ER Tech1) (21:01 [facility]) Lactate, Serum Urgent (20:39 12/26/2016 HBivens A.R.N.P.) (Ack 20:41 IJurca ER Tech1) (21:01 [facility]) PCT (Procalcitonin) Urgent (20:39 12/26/2016 HBivens A.R.N.P.) (Ack 20:41 IJurca ER Tech1) (21:01 [facility]) CT Abd/Pel w Cont (No) (pending) Urgent (20:47 12/26/2016 HBivens A.R.N.P.) (Ack 20:50 IJurca ER Tech1) (23:36 [facility]) MEDICATION ORDERS: Metoprolol PO 12.5 mg (HIGH ALERT MEDICATION, NOW) (00:04 12/27/2016 Sanam Pelaez) - (Lamotrigine 300 mg PO now) (00:04 12/27/2016 Sanam Pelaez) -- (Risperidone 1 mg PO now) (00:04 12/27/2016 Sanam Pelaez) IV FLUIDS: IV Saline Lock (20:39 12/26/2016 HBivens A.R.N.P.) (21:00 [facility]) Dilaudid IV 1 mg (HIGH ALERT MEDICATION, NOW) (20:46 12/26/2016 HBivens A.R.N.P.) (21:00 [facility]) Zofran IV 4 mg (NOW) (20:46 12/26/2016 HBivens A.R.N.P.) (21:00 [facility]) Demerol IV 25 mg (HIGH ALERT MEDICATION, NOW) (22:55 12/26/2016 Tyree written order Nicol HERNANDEZ) (22:56 [facility]) Levaquin IV 750 mg/150 mL (NOW) (23:19 12/26/2016 Tyree written order Nicol HERNANDEZ) (23:20 [facility]) Demerol IV 25 mg (HIGH ALERT MEDICATION, NOW) (00:17 [facility]/27/[facility] HERNANDEZ) (0:18 [facility]) ORDER SHEET NOTES: [Electronically signed by Bella Servin (00:45 12/27/2016)] [Electronically signed by Dorene Tripp A.R.N.P. (13:07 12/29/2016)] [Electronically locked/signed by Bella Servin (00:45 12/27/2016)]
--- NOTE | 2016-12-29 13:08 | ED MED RECONCILIATION SUMMARY ---
Patient: ELYSSA JORGE Medication Reconciliation Report [facility] VisitID: [id number] [address] [place] [address] 71y, F Registration Date/Time: 12/26/2016 Weight: 63.5 kg Height/Length: 63 in. BMI: 24.8 ALLERGIES: No Known Drug Allergy The patient's Home Medications are listed below: THE FOLLOWING MEDICATIONS NEED TO BE RECONCILED: Aspirin Oral (325 mg) Aspirin Oral Atorvastatin Calcium Oral 40 mg lamotrigine 200 mg Levofloxacin Oral Metoprolol 25 mg Risperidone 1 mg The source(s) of the original Home Medication information: Not obtained. The following Medications were given to the patient in the Emergency Department: Dilaudid [IVP] IVP 1 mg, administered: 12/26/2016 9:00:00 PM Zofran [IVP] IVP 4 mg, administered: 12/26/2016 9:00:00 PM Demerol [IVP] IVP 25 mg, administered: 12/26/2016 10:56:00 PM Levaquin [IVPB] IVPB bolus 0, then 750 mg 100 mL/hr, administered: 12/26/2016 11:20:00 PM Demerol [IVP] IVP 25 mg, administered: 12/27/2016 12:18:00 AM The following Medications were prescribed to the patient: None.
--- NOTE | 2016-12-29 13:08 | ED MED RECONCILIATION SUMMARY ---
Patient: ELYSSA JORGE Medication Reconciliation Report [facility] VisitID: [id number] [address] [place] [address] 71y, F Registration Date/Time: 12/26/2016 Weight: 63.5 kg Height/Length: 63 in. BMI: 24.8 ALLERGIES: No Known Drug Allergy The patient's Home Medications are listed below: THE FOLLOWING MEDICATIONS NEED TO BE RECONCILED: Aspirin Oral (325 mg) Aspirin Oral Atorvastatin Calcium Oral 40 mg lamotrigine 200 mg Levofloxacin Oral Metoprolol 25 mg Risperidone 1 mg The source(s) of the original Home Medication information: Not obtained. The following Medications were given to the patient in the Emergency Department: Dilaudid [IVP] IVP 1 mg, administered: 12/26/2016 9:00:00 PM Zofran [IVP] IVP 4 mg, administered: 12/26/2016 9:00:00 PM Demerol [IVP] IVP 25 mg, administered: 12/26/2016 10:56:00 PM Levaquin [IVPB] IVPB bolus 0, then 750 mg 100 mL/hr, administered: 12/26/2016 11:20:00 PM Demerol [IVP] IVP 25 mg, administered: 12/27/2016 12:18:00 AM The following Medications were prescribed to the patient: None.
[2016-12-29 14:30] VITALS: BP 114/62
[2016-12-29 18:11] VITALS: BP 107/60
[2016-12-29 22:46] VITALS: BP 130/61
[2016-12-30 03:39] VITALS: BP 117/66
[2016-12-30] MEDS ORDERED: DEMEROL50 MG PO (06:09)
--- NOTE | 2016-12-30 06:10 | Provider's Discharge Care Plan ---
Problem, Goal, Plan Problem List 1. S/P DRAINAGE COLOSTOMY SITE ABCESS Goals: Improve disease control, Therapeutic intervention Instructions: Follow up as directed, Take meds as directed
--- NOTE | 2016-12-30 06:10 | Provider's Discharge Care Plan ---
Problem, Goal, Plan Problem List 1. S/P DRAINAGE COLOSTOMY SITE ABCESS Goals: Improve disease control, Therapeutic intervention Instructions: Follow up as directed, Take meds as directed
[2016-12-30 06:19] VITALS: BP 119/67
--- NOTE | 2016-12-30 06:55 | DISCHARGE SUMMARY ---
ADMIT DATE: 12/26/2016 DISCHARGE DATE: 12/30/2016 ADMITTING DIAGNOSIS: 1. Colostomy site abscess DISCHARGE DIAGNOSES: 1. Colostomy site abscess 2. Postoperative bleed PROCEDURE PERFORMED: 1. Incision and drainage of colostomy site abscess and wound exploration. BRIEF HISTORY: A 71-year-old female status post colostomy takedown 2016following a Desiree procedure for perforated diverticulitis, was asymptomatic until the day prior to admission when she developed swelling and discomfort in the left colostomy site. While at [facility] [employer], she noticed some serosanguineous fluid draining from the colostomy site. She was evaluated in the emergency department and admitted for definitive treatment. She complained of left-sided discomfort, swelling. No fever. No chills. The patient had been having bowel movements and had been normal. Her activity level had been normal and she had seen Dr. Ledezma in the clinic since her discharge from the hospital following her colostomy takedown and was doing well. On physical examination, she was noted some erythema and tenderness at the colostomy site with purulent drainage. HOSPITAL COURSE: The patient was admitted to [facility], taken to the operating room where she underwent incision and drainage and curettage of an infected colostomy site and packing. After the first dressing change, the nurses noticed bleeding from the wound. This was reinforced but continued to ooze. Rather than to try and evaluate this in the poor lighting of the patient's room, it was decided to return her to surgery where she was evaluated with better lighting and equipment. The wound was inspected. A clot was evacuated. There was no obvious site of bleeding. The wound was then irrigated and packed again. She subsequently underwent dressing changes without incident and was scheduled for discharge. DISCHARGE INSTRUCTIONS/MEDICATIONS: The patient was discharged as to be followed up at the same day with wound care. She was to resume her normal medications to include Metoprolol 12.5 mg b.i.d., Lamictal 300 mg at bedtime, Risperdal 1 mg at bedtime. She was given Demerol 50 mg 1 tablet q.6 hours p.r.n. pain and further care by the Wound Care and Dr. Ledezma.
== END 2016-12-30 12:00 | disposition home or self-care (01) | DRG 857 ==
LOC: ED SRH 19:56 → TRANS SRH 21:04 → ACUTE2 SRH 21:04
PROVIDERS: ADMIT Specialist
PROC: 0JB80ZZ Excision of Abdomen Subcutaneous Tissue and Fascia, Open Approach (ICD-10-PCS; principal; 2016-12-27 09:15)
PROC: 0H97XZZ Drainage of Abdomen Skin, External Approach (ICD-10-PCS; 2016-12-28)
DX: T81.4XXA Infection following a procedure, initial encounter (principal); L02.211 Cutaneous abscess of abdominal wall; L76.22 Postprocedural hemorrhage of skin and subcutaneous tissue following other procedure; I10 Essential (primary) hypertension; D86.9 Sarcoidosis, unspecified; F17.210 Nicotine dependence, cigarettes, uncomplicated